=== PATIENT | male | born 1985 | race Caucasian/White ===

== ENCOUNTER 2020-09-25 16:56 | Outpatient (CLI) | payer OTHER | END 2020-09-25 16:57 | disposition home or self-care (01) | LOC: COV 16:56 | PROVIDERS: ATTEND Family Medicine | DX: R09.81 Nasal congestion (principal); M79.10 Myalgia, unspecified site; J02.9 Acute pharyngitis, unspecified; Z20.828 Contact with and (suspected) exposure to other viral communicable diseases ==

== ENCOUNTER 2020-09-26 08:00 | Outpatient (CLI) | payer SELFPAY | END 2020-09-26 23:59 | disposition home or self-care (01) | LOC: LAB.R 08:00 | PROVIDERS: ATTEND Family Medicine | DX: J39.2 Other diseases of pharynx (principal) | CPT/HCPCS: 87070 ==